=== PATIENT | male | born 1955 | race Caucasian/White ===

== ENCOUNTER → 2020-01-06 11:42 | Outpatient (BNVA) | payer MEDICAID, SELFPAY | PROVIDERS: Family Provider Pediatrics; Visit Provider Specialist | DX: M25.562 Pain in left knee (principal) | CPT/HCPCS: 73560; 73565 ==

== ENCOUNTER 2020-01-28 08:01 | Outpatient (CLI) | payer MEDICAID, SELFPAY ==
--- NOTE | 2020-01-28 08:45 | MR_ITS ---
WS: [id number] MRI LEFT KNEE HISTORY: M25.569 Pain in unspecified knee COMPARISON: 01/06/2020 Anterior cruciate ligament: Abnormal signal throughout the ACL with thickening of the ligament. Cours e of the ligament is normal. Suspect there is probably partial tear involving the proximal ligament. Posterior cruciate ligament: Intact. Medial collateral ligament: Intact. Posterior lateral corner structures: Intact. Medial menisci: Horizontal tear in the posterior horn extends to the inferior articular surface. Tear also extends to the free edge. Lateral meniscus: Intact. Normal signal, size and shape. Extensor mechanism: Distal quadriceps tendon and patellar tendons are intact. Fluid and soft tissue: Small suprapatellar effusion. There is mild soft tissue edema surrounding the knee. Small Mccracken's cyst measures about 2 cm in length. Osseous and articular structures: Patellofemoral compartment: Normal. Medial compartment: Moderate narrowing of the medial compartment. Large osteochondral lesion along th e weightbearing surface of the femoral condyle measures 11 x 3 mm. There is loss of cartilage over th e femoral condyle and tibial plateau. There is a large amount of marrow edema in the femoral condyle which extends the entire width of the condyle and to the midline. Additional smaller osteochondral le agustín involving the medial most tibial plateau. Lateral compartment: Mild narrowing of the lateral compartment with thinning of the cartilage. No mar row edema. MR/MR knee LT wo con* [id number] IMPRESSION: 1. Large amount of marrow edema involving the medial femoral condyle. 2. Moderate joint space narrowing with loss of cartilage in the medial compart ment and an osteochondral lesion along the weightbearing surface of the femoral condyle measuring 11 x 3 mm. 3. Increased signal with diffuse thickening throughout the ACL. Partial tear s uspected proximally. 4. Small joint effusion. 5. Small Mccracken's cyst.
== END 2020-01-28 08:02 | disposition home or self-care (01) ==
LOC: RADSHAW 08:06
PROVIDERS: PCP Pediatrics; Visit Provider Specialist
DX: M25.562 Pain in left knee (principal); R60.0 Localized edema; M25.462 Effusion, left knee; M71.22 Synovial cyst of popliteal space [Baker], left knee
CPT/HCPCS: 73721

== ENCOUNTER 2020-12-11 08:05 | Outpatient (CLI) | payer MEDICAID, SELFPAY ==
--- NOTE | 2020-12-11 08:14 | CT_ITS ---
WS: [id number] CT ABDOMEN PELVIS TECHNIQUE: Contrast-enhanced CT of the abdomen and pelvis with coronal and sagittal reformatted image s. CLINICAL INFORMATION: R63.4 - Abnormal weight loss COMPARISON: None. DLP: 1109.[address] scans at [facility] use at least one of these dose optimization techniques: automat ed exposure control; mA and/or kV adjustment per patient size (includes targeted exams where dose is matched to clinical indication); or iterative reconstruction. FINDINGS: Lung bases are well aerated. Mild diffuse fatty infiltration liver. Normal portal vein and splenic ve in. Normal spleen. Normal GE junction. Normal pancreatic parenchymal enhancement. Adrenal glands are normal. Normal renal parenchymal enhancement. No hydronephrosis. Gallbladder appears normal. Normal c aliber abdominal aorta. Aortic calcification. No abdominal or pelvic lymphadenopathy. No inguinal lym phadenopathy. Urine distended bladder. Normal sigmoid colon. No evidence of small or large bowel obstruction. Incid ental fat-containing umbilical hernia. Disc space narrowing worse at L2-L3 and L3-L4. CT/CT abdomen pelvis w con* [id number] IMPRESSION: 1. Mild diffuse fatty infiltration of the liver. 2. Normal renal parenchymal enhancement. No hydronephrosis. 3. Normal caliber abdominal aorta. 4. No abdominal or pelvic lymphadenopathy. 5. Urine distended bladder. 6. No evidence of small or large bowel obstruction.
[2020-12-11] MEDS: iohexol 300 mg/mL 50 mL Btl PO (09:16)
[2020-12-11 09:37] LABS: Blood Urea Nitrogen 8 mg/dL (8-23)
[2020-12-11] MEDS: iohexol 300 mg/mL 100 mL Btl IV (09:44)
== END 2020-12-11 08:06 | disposition home or self-care (01) ==
PROVIDERS: PCP Pediatrics; Visit Provider Internal Medicine
DX: R63.4 Abnormal weight loss (principal); K76.0 Fatty (change of) liver, not elsewhere classified
CPT/HCPCS: 74177; 82565; 84520; Q9967